=== PATIENT | female | born 2000 | race Two or more races ===

== ENCOUNTER 2024-07-03 22:17 | Emergency (ER) | payer OTHER, SELFPAY ==
[2024-07-03 22:20] VITALS: BP 146/112
[2024-07-04] VITALS: BP 140/88
--- NOTE | 2024-07-04 02:02 | ED.GENMED ---
History of Present Illness
General
Chief Complaint: DVT/Possible Blood Clot
Source: patient
Exam Limitations: none
Time Seen by Provider: 07/04/24 01:18
Nursing documentation reviewed up to this point in time: agreed with
History of Present Illness
History of Present Illness:
23-year-old female with no past medical history who presents emergency department today with concerns of left lower extremity pain and redness. Patient reports that this started the evening prior when she noticed some calf pain. Patient does take
control pills. Patient reports that the pain is worse with walking. Patient reports that today, she started to notice redness on her past and on her thigh. Patient Nu[place] any fevers or chills. She denies any nausea or vomiting. She denies
any trauma to the area or falls. She is able to ambulate without any difficulties.
Review of Systems
Review of Systems
All Other Systems: ROS reviewed and negative except as documented in HPI and ROS
Phy Exam
Physical Exam
Physical Exam:
General: Patient is well appearing and in no acute distress; non-toxic
Skin: Small warm and erythematous patch noted, 1 on the left medial thigh and 1 on the left medial lower leg
Head: Normocephalic, atraumatic
Eyes: Sclera non-icteric. EOMs intact.
Cardiac: Regular rate and rhythm, no murmurs
Peripheral Vascular: No lower extremity swelling or edema, 2+ DP pulse on the left
Pulm: Normal respiratory effort, no wheezes, rales, or rhonchi
Musculoskeletal: No bony tenderness palpation of the left lower extremity
Neuro: CN II-XII intact, no focal neurologic deficits.
Psychiatric: Appropriate mood and affect.
Course
Orders/Labs/Results
Orders:
Orders
07/04/24 00:00
US Periph Venous LOWER Ext LT Urgent
Reason For Exam: pain
Vital Signs
Initial and Last Documented VS:
Initial Vital Signs
Temp Pulse Resp BP Pulse Ox
98.0 F 100 16 146/112 97
07/03/24 22:20 07/03/24 22:20 07/03/24 22:20 07/03/24 22:20 07/03/24 22:20
Last Documented Vital Signs
Temp Pulse Resp BP Pulse Ox
98.0 F 84 18 136/86 98
07/03/24 22:20 07/04/24 02:42 07/04/24 02:42 07/04/24 02:42 07/04/24 02:42
MDM/Problems Addressed
Differential Diagnosis Includes:
DVT, cellulitis, dependent edema, contact dermatitis
MDM/Problems Addressed:
23-year-old female presents emergency department today with concerns of left-sided leg redness and pain. Pain started first yesterday and then she started to get redness. She did not injure the area she did not have any trauma to the area. She is
able to ambulate without any difficulties. On physical exam she is well-appearing no acute distress she is afebrile she does have some redness noted to the left lower leg it is hot to the touch. This is concerning for cellulitis however could be
contact dermatitis. Will cover with Keflex. DVT study negative. Patient stable for discharge.
Chronic conditions affecting care:
n/a
*Critical Care Note
Total Time (30-74mins, 75-104mins- exclusive of procedures): Not Applicable
ED Attending Note
-
Portions of this chart may have been created with voice recognition software.� Occasional wrong word or��sound alike� substitutions may have occurred due to the inherent limitations of voice recognition software.
Discharge Plan
Departure
Patient Disposition: Home (Routine Discharge)
Date of Disposition: 07/04/24
Time of Disposition: 02:04
Patient with high blood pressure during this ER visit?: Yes
Condition: Good
Discharge Problem:
Cellulitis
Instructions: Cellulitis (Skin Infection), Adult (DC), BLOOD PRESSURE
Prescriptions:
New
cephalexin 500 mg capsule
500 mg PO QID 7 Days Qty: 28 0RF
Referrals:
NONE,* [Family Provider] -
Activity Restrictions/Additional Instructions:
Keflex has been sent to your pharmacy. Starting tomorrow, you can start taking 1 tablet 4 times daily for 7 days.
Your ultrasound study was negative for DVT.
PLEASE RETURN EMERGENCY DEPARTMENT SHOULD YOU DEVELOP ACUTE WORSENING OR SYMPTOMS, LYMPHADENOPATHY, SPREADING OF THE REDNESS, FEVERS OR CHILLS, NAUSEA OR VOMITING, ANY OTHER SIGNS OR SYMPTOMS RECENTLY.
Interventions
Interventions:
*Risk Screen - Suicide Last Done: 07/03/24 22:20
*General Assessment Last Done: 07/03/24 22:20
*Neglect/Abuse Screening Last Done: 07/03/24 22:20
*ED- Fall Risk Assessment Last Done: 07/03/24 22:20
*ED COVID-19 Vaccine History Last Done: 07/03/24 22:20
*Nursing Disposition Last Done: 07/04/24 02:42
ED- Cardiac Assessment Last Done: 07/04/24 01:25
ED-Musculoskeletal Assessment Last Done: 07/04/24 01:25
ED- Pulmonary Assessment Last Done: 07/04/24 01:25
ED-Skin Assessment Last Done: 07/04/24 01:25
Discharge Date and Time
Discharge Date/Time: 07/04/24 02:44
Print Language: CZECH
[2024-07-04 02:42] VITALS: BP 136/86
== END 2024-07-04 02:44 | disposition home or self-care (01) ==
LOC: EMR 22:17
PROVIDERS: EMERGENCY PHYSICIAN Student in an Organized Health Care Education/Training Program
DX: L03.116 Cellulitis of left lower limb (principal)
CPT/HCPCS: 99284; 93971

== ENCOUNTER 2024-07-06 03:25 | Observation (INO) | payer OTHER, SELFPAY ==
[2024-07-05 22:48] VITALS: BP 131/85
[2024-07-06] VITALS (8 sets, daily range): BP systolic 114–139; BP diastolic 64–87; BMI 43.8; BMI 42.2
[2024-07-06] MEDS: ANCEF 10 IV ×3 (01:32→17:48)
[2024-07-06 01:43] LABS: % Basophils 0.3 % (0-2); % Immature Granulocytes 0.4 % (0-0.5); % Lymphocytes 41.4 % (20.5-51.1); % Monocytes 5.3 % (1.7-9.3); % Neutrophils 52.6 % (42.2-75.2); Absolute Lymphocytes 3.1 10^3/uL (1.2-3.4); Absolute Monocytes 0.4 10^3/uL (0.1-0.6); Hematocrit 36.4 % (37.0-47.0); Hemoglobin 11.4 g/dL (12.0-16.0); Mean Corp Hgb Conc. 31.3 g/dL (33.0-37.0); Mean Corpuscular Hgb 26.1 pg (27.0-31.0); Mean Corpuscular Volume 83.3 fL (81.0-99.0); Mean Platelet Volume 9.8 fL (7.4-10.4); Nucleated Red Blood Cells % 0 %; Platelet Count 319 10^3/uL (130-400); Red Blood Cell Count 4.37 10^6/uL (4.20-5.40); White Blood Cell Count 7.6 10^3/uL (4.8-10.8)
[2024-07-06 01:54] LABS: HCG, Serum Qualitative Screen Negative
[2024-07-06 01:59] LABS: ALT (SGPT) < 10 U/L (0-35); AST (SGOT) 14 U/L (14-36); Albumin 3.6 g/dl (3.5-5.0); Alkaline Phosphatase 61 U/L (38-126); Blood Urea Nitrogen 11 mg/dl (7-17); Calcium 9.4 mg/dl (8.4-10.2); Carbon Dioxide 26 mmol/L (22-30); Chloride 107 mmol/L (98-107); Estimated Creatinine Clearance > 125 ml/min; Glucose 116 mg/dl (70-99); Potassium 3.9 mmol/L (3.5-5.1); Sodium 141 mmol/L (135-145); Total Bilirubin 0.3 mg/dl (0.2-1.3); Total Protein 6.7 g/dl (6.3-8.2); eGFR > 60.00
--- NOTE | 2024-07-06 02:50 | ED.GENMED ---
History of Present Illness
General
Chief Complaint: Skin Problem
Source: patient, spouse and family
Exam Limitations: none
Time Seen by Provider: 07/06/24 00:08
Nursing documentation reviewed up to this point in time: agreed with
History of Present Illness
History of Present Illness:
23-year-old female past medical history of anxiety depression presenting to the emergency department today with concerns of worsening swelling redness discomfort to the left leg worsening over the past 2 days despite taking Keflex was diagnosed with
cellulitis 2 days ago here in the ER. Denies any fevers. Also had an ultrasound of the time that did not show any evidence of blood clot.
Review of Systems
Review of Systems
Allergies reviewed?: Yes
All Other Systems: ROS reviewed and negative except as documented in HPI and ROS
Phy Exam
Physical Exam
Physical Exam:
GENERAL: Alert , in no apparent distress
EYE: pupils equal and reactive
NECK: Supple, no significant adenopathy.
ENT: o/p clr, mmm.
CARDIAC: Regular rate and rhythm .
LUNGS: Clear breath sounds bilaterally, no acute respiratory distress, no wheezes/rales/rhonchi
ABDOMEN: Soft, without focal tenderness, no r/g, no cvat
NEUROLOGICAL: Alert and oriented, no focal neuro deficits
SKIN: Redness and swelling tenderness palpation the area overlying the medial left ankle but able to move at the ankle without discomfort, red swelling to the proximal medial left bolanos as well as to the medial thigh. No fluctuance or induration
warm and dry, skin intact.
MUSCULOSKELETAL: No edema, well perfused.
PSYCH: Normal and appropriate interaction.
Course
Orders/Labs/Results
Orders:
Orders
07/06/24 01:01
Urinalysis Reflex To Culture Urgent
Date Specimen was Collected: 07/06/24
Time Specimen was Collected: 01:21
CeFAZolin 2 GRAM [Ancef] 2 grams in 10 ml IV NOW
Test Result ONCE
07/06/24 01:32
Beta Hcg Serum Qualitative Screen [HCG, Serum Qualitative Screen] Urgent
CBC/With Diff [Complete Blood Count/With Diff] Urgent
CMP [Comprehensive Metabolic Panel] Urgent
Abnormal Lab Results
07/06/24
01:32
Hgb 11.4 L g/dL
(12.0-16.0)
Hct 36.4 L %
(37.0-47.0)
MCH 26.1 L pg
(27.0-31.0)
MCHC 31.3 L g/dL
(33.0-37.0)
Glucose 116 H mg/dl
(70-99)
07/06/24 01:32
07/06/24 01:32
Vital Signs
Initial and Last Documented VS:
Initial Vital Signs
Pulse Resp BP Pulse Ox
82 16 131/85 97
07/05/24 22:48 07/05/24 22:48 07/05/24 22:48 07/05/24 22:48
Last Documented Vital Signs
Pulse Resp BP Pulse Ox
82 18 136/66 97
07/05/24 22:48 07/06/24 02:03 07/06/24 02:00 07/06/24 02:03
MDM/Problems Addressed
MDM/Problems Addressed:
23-year-old female presenting to the emergency department today with concerns of swelling redness discomfort worsening to the left leg. Has been on Keflex for 2 days for presumed cellulitis. There is tenderness palpation and redness and warmth
overlying the medial left ankle proximal bolanos and into the thigh. Does not seem to be consistent with allergic reaction due to the tenderness to palpation no fluctuance or induration not consistent with abscess. Concern for possible cellulitis
considering this started on IV antibiotics for monitoring overnight.
*Critical Care Note
Total Time (30-74mins, 75-104mins- exclusive of procedures): Not Applicable
ED Attending Note
-
Portions of this chart may have been created with voice recognition software.� Occasional wrong word or��sound alike� substitutions may have occurred due to the inherent limitations of voice recognition software.
Discharge Plan
Departure
Patient Disposition: Admit
Date of Disposition: 07/06/24
Time of Disposition: 02:53
Admit to: Med/Surg
Admit to doctor: Abdon
Presentation/result/management discussed w/ accepting MD/DO: Hospitalist
Patient with high blood pressure during this ER visit?: No
Condition: Good
Covid-19: Not Applicable
Discharge Problem:
Cellulitis
Prescriptions:
No Action
cephalexin 500 mg capsule
500 mg PO QID 7 Days Qty: 28 0RF
Referrals:
NONE,* [Family Provider] -
Interventions
Interventions:
*Risk Screen - Suicide Last Done: 07/05/24 22:48
*General Assessment Last Done: 07/05/24 22:48
*Neglect/Abuse Screening Last Done: 07/06/24 01:16
*ED- Fall Risk Assessment Last Done: 07/05/24 22:48
*ED COVID-19 Vaccine History Last Done: 07/05/24 22:48
ED-Skin Assessment Last Done: 07/06/24 01:16
Discharge Date and Time
Print Language: IRAQI
--- NOTE | 2024-07-06 03:21 | HPS.HSE ---
Family Physician
-
Family Physician: * NONE
Chief Complaint
-
Lower extremity redness and swelling with pain
History of Present Illness
This is a 23-year-old with no known signal past medical history presenting to the emergency department for persistent lower extremity swelling redness and pain that has worsened despite initiation of oral antibiotics 2 days ago.
Patient initially presented to the emergency department after 1 day of swelling and redness that began in the posterior left calf. At the time she was noted to have small amount of erythema or in the posterior right thigh as well. She also had
some ankle redness. She was initiated on Keflex. Patient reports compliance with the Keflex for the last 2 days. Despite this the swelling around the calf had improved but around the thigh she has had increasing erythema tenderness and edema that
seems to be tracking up thigh. She also continued to have some redness and swelling of the medial side of the left ankle. She denies any prior antibiotic use. She denies any recent hospitalization. She has no history of immunocompromise. She
has no recent travels or sick contact.
She is afebrile, blood pressure was 136/66 with a pulse of 82 and she satting at 7% on room air. CBC was unremarkable stop electrolytes BUN/creatinine were all normal.
Medical History
Past Medical History
Past Medical History: Reports None
Past Surgical History: Reports None
Social History
Tobacco: Non-smoker
Alcohol: Occasional
Drug: None
Personal: Partner
Living: With Family
Family History
Family History: Cancer (Grandmother with pancreatic cancer) and Diabetes
Allergies / Home Medications
Allergies reflects when Allergies were last updated in [facility].
Home Medications with original date entered in [facility]
Allergy/Medication List:
Allergies
Allergy/AdvReac Type Severity Reaction Status Date / Time
No Known Allergies Allergy Verified 07/05/24 22:51
Home Medications
cephalexin 500 mg capsule 500 mg PO QID 7 days #28 caps 07/04/24
Review of Systems
-
History Source: Patient
Constitutional: Reports No Symptoms
EENT: Reports No Symptoms
Respiratory: Reports No Symptoms
Cardiac: Reports No Symptoms
Abdomen/GI: Reports No Symptoms
: Reports No Symptoms
Musculoskeletal: Reports No Symptoms
Skin: Reports Rash
Neurological: Reports No Symptoms
Endocrine: Reports No Symptoms
Hematologic/Lymphatic: Reports No Symptoms
Psych: Reports No Symptoms
Physical Exam
Vital Signs
Vital Signs
Pulse Resp BP Pulse Ox
82 18 139/66 95
07/05/24 22:48 07/06/24 02:03 07/06/24 03:00 07/06/24 03:00
Physical Exam
General: Well Developed, Well Nourished, No Apparent Distress and Comfortable
HEENT: NormoCephalic, Anicteric, Moist mucous membranes and Atraumatic
Respiratory: Clear
Cardiac: S1/S2 and Regular Rhythm
Breast: Deferred by me
GI: Soft, Non Tender, Non Distended and Normal Bowel Sounds
Rectal: Deferred by Provider
Genito-urinary: Deferred by me
Musculoskeletal: No Clubbing, No Cyanosis and No Edema
Skin: Warm and Lesions (erythematous tender patches spreading along the posterior thigh suggestive of lymphangitic spread. Tender to palpation. Demarcated with pen.)
Neuro: AO x 3 and Nonfocal/grossly intact
Hematologic/Lymphatic: No Lymphadenopathy
Psych: Calm
Laboratory Results
-
07/06/24 01:32
07/06/24 01:32
Laboratory Results
Total Bilirubin 0.3 mg/dl (0.2-1.3) 07/06/24 01:32
AST 14 U/L (14-36) 07/06/24 01:32
ALT < 10 U/L (0-35) 07/06/24 01:32
Alkaline Phosphatase 61 U/L (38-126) 07/06/24 01:32
Data Reviewed
-
Lab Data: Labs Reviewed by me
Old Records: Reviewed
Impression/Plan
-
IMPRESSION:
23 y.o female with cellulitis and lymphangitic spread. No known risk factors. Trial of 48 hours of oral cephalexin without improvement. She is afebrile and shows no systemic signs. Otherwise healthy female without known metabolic disease.
PLAN:
Cellulitis - Failure of outpatient abx? Lymphangitic spread.
- admit to med/surg observation
- check mrsa swab
- given lack of risk factors, will continue with cefazolin 2g q 8h for now, monitor spread and signs of systemic illness, broaden if mrsa swab positive or patient continues to have spread on IV abx.
-pain control
DVT PPx - lovenox sq
Code status - Full Code
[2024-07-06 07:45] LABS: Urine Albumin 1+ (Neg - Trace); Urine Bilirubin Negative (Negative); Urine Character Clear (Clear); Urine Color Yellow; Urine Glucose Negative (Negative); Urine Ketone Negative (Negative); Urine Leukocyte Negative (Negative); Urine Nitrite Negative (Negative); Urine Occult Blood 4+ (Negative); Urine Specific Gravity 1.025 (<1.030); Urine Urobilinogen Negative (Neg - 1+)
[2024-07-06 08:32] LABS: Urine Squamous Cell >30 /LPF (Few)
[2024-07-06 08:36] LABS: Urine Bacteria Few (Negative); Urine White Cell 0-2 /HPF (0-5)
--- NOTE | 2024-07-06 11:34 | CON.ID ---
Consultation
-
Date/Time Consultation Requested: 07/06/2024 0933
Date/Time Consultation Performed: 07/06/2024 1110
Requesting Provider: Dr. Cervantes
Performing Provider: Dr. Head
Reason for Consultation: Left lower extremity cellulitis
Chief Complaint / Past History
History of Present Illness
Latrice Graves is a 23-year-old female being evaluated at the request of Dr. Cervantes in regards to left lower extremity cellulitis. History is obtained from chart review, along with patient interview.
The patient has a significant past medical history of obesity (BMI = 42), and reports she was in her usual state of health until approximately 07/02 when she noted some muscle pain in the left leg, and felt like she pulled a muscle. She also had
noted some erythema developing on her medial calf area. She presented to the emergency room and was evaluated and felt to have left lower extremity cellulitis. A duplex ultrasound was performed which was negative, and ultimately she was discharged
on a course of Keflex 500 mg 4 times daily.
She presents back today after she developed increasing pain. She admits that yesterday she noted increased discomfort in the medial left calf area, and also noted some increasing lymphangitic streaking along her medial thigh with noted tenderness.
She admits to some groin discomfort, but denies any lymphadenopathy there. She denies any fevers or chills.
She denies any prior history of lower extremity cellulitis. She denies any history of recent travel. She does have 2 cats and 1 dog at home.
Past History
Additional Past Medical History:
Obesity
Anxiety/depression
Iron deficiency anemia
Additional Past Surgical History:
Roby teeth
Allergy History:
No Known Allergies Allergy (Verified 07/05/24 22:51)
Medications Reviewed: Yes
Current Antibiotics:
Cefazolin 2 gm IV q8h
Social History
Tobacco: Non-Smoker
Alcohol: Occasional
Drug: None
Personal: Partner
Employment: Employed
Family History
Family History: Not Pertinent
Review of Systems
Vital Signs
Temp Pulse Resp BP Pulse Ox
98.4 F 96 21 116/74 98
07/06/24 10:27 07/06/24 10:27 07/06/24 10:27 07/06/24 10:27 07/06/24 11:24
Physical Exam
Physical Exam
Constitutional: No Acute Distress, Comfortable and Non-toxic
Eyes: No Conjunctival Hemorrhage and Sclera Anicteric
Oral: No Thrush and No Ulcers
Cardiovascular: Regular Rate and S1/S2; Negative S3/S4
Pulmonary: Clear; Negative Wheezes, Rales or Rhonchi
Gastrointestinal: Soft, Non Tender, Non Distended and Normal Bowel Sounds
Extremities: Edema (LLE) and Erythema (LLE; medial calf and thigh area. Positive tenderness)
Neurological: Awake and Alert
Psychological: Calm
Lab / Diagnostic Study Results
07/06/24 01:32
07/06/24 01:32
Abs Immat Gran (auto) 0.0 10^3/uL (0-0.05) 07/06/24 01:32
Absolute Neuts (auto) 4.0 10^3/uL (1.4-6.5) 07/06/24 01:32
Absolute Lymphs (auto) 3.1 10^3/uL (1.2-3.4) 07/06/24 01:32
Absolute Monos (auto) 0.4 10^3/uL (0.1-0.6) 07/06/24 01:32
Absolute Basos (auto) 0.0 10^3/uL (0-0.2) 07/06/24 01:32
Immature Gran % 0.4 % (0-0.5) 07/06/24 01:32
Neutrophils % 52.6 % (42.2-75.2) 07/06/24 01:32
Lymphocytes % 41.4 % (20.5-51.1) 07/06/24 01:32
Monocytes % 5.3 % (1.7-9.3) 07/06/24 01:32
Eosinophils % 0.0 % (0-6) 07/06/24 01:32
Basophils % 0.3 % (0-2) 07/06/24 01:32
Ur Squamous Epith Cells >30 /LPF (Few) 07/06/24 07:18
Microbiology Results
Micro:
07/06/24 04:28 MRSA Screen - Pending
Nose
Imaging:
07/04/2024 Duplex ultrasound left lower extremity: No subcutaneous varicosities. No evidence of left lower extremity DVT.
Assessment / Plan
LLE cellulitis
- Given presentation, suspect streptococcal
Hx obesity
Hx anxiety/depression
Recommendations:
Continue with IV cefazolin for today.
LE elevations.
Monitor WBC / temp curve.
Would reassess leg in a.m., and if improved, can likely transition to oral Keflex, but would increase to 750 mg 4 times daily (given current BMI) and continue therapy through 07/12/24
--- NOTE | 2024-07-06 15:16 | CM ---
Met with patient at the bedside
Pharmacy verified: [facility] @ [address], [place]
Appointment scheduled on Tuesday with new Primary Care Provider; patient does not recall Physician's name
Outpatient Observation Status Notice explained; form signed @ 1512
Patient lives with her girlfriend/girlfriend's family; multilevel home; 1 step to enter; 12-13 steps between floors; railing on stairs; patient shares bedroom and bath with her friend; bath has tub w/shower
PLOF: independent with ambulation, stairs, and ADLs; drives; has a car; works timekeeper; No DME
Transport: friend or friend's family will provide transport home
Plan: discharge to home when stable; no needs anticipated
[2024-07-06] MEDS: LOVENOX 40 MG SC (17:48)
[2024-07-06] MEDS: TORADOL 10 MG IV (19:40)
[2024-07-06] MEDS: TYLENOL 650 MG PO (21:48)
[2024-07-07] MEDS: ANCEF 10 IV ×2 (02:04→09:59)
[2024-07-07] MEDS: TORADOL 10 MG IV (02:05)
[2024-07-07 07:37] VITALS: BP 112/71
--- NOTE | 2024-07-07 11:20 | W.PN.ID1 ---
Date of Service
Date of Service: July 07, 2024
Today's Communication
transition to oral Keflex 1000 mg 4 times daily (given current BMI) and continue therapy through 07/12/24
stable for dc from ID perspective
Assessment / Plan
Nonpurulent LLE cellulitis
- Given presentation, suspect streptococcal
Hx class III obesity
Hx anxiety/depression
Recommendations:
LE elevations as tolerated
MRSA screen negative as expected
Monitor WBC / temp curve.
transition to oral Keflex 1000 mg 4 times daily (given current BMI) and continue therapy through 07/12/24
stable for dc from ID perspective
Chief Complaint
-: Cellulitis
Subjective / Review of Systems
afebrile
bp stable
tolerating current therapies
Vital Signs / Physical Exam
Vital Signs
Vital Signs
Temp Pulse Resp BP Pulse Ox
98.2 F 84 17 112/71 97
07/07/24 07:37 07/07/24 07:37 07/07/24 07:37 07/07/24 07:37 07/07/24 07:37
Physical Exam
Constitutional: No Acute Distress
Cardiovascular: Regular Rate and S1/S2; Negative Murmur or Rub
Pulmonary: Clear and Symmetric; Negative Wheezes or Rales
Gastrointestinal: Soft, Non Tender, Non Distended and Normal Bowel Sounds
Skin: Warm, Dry and Rash (minimal persistent erythema, minimally tender); Negative Jaundice
Objective Data
Lab Data
Lab Results
07/06/24 01:32
07/06/24 01:32
Estimated Creat Clear > 125 ml/min 07/06/24 01:32
Total Bilirubin 0.3 mg/dl (0.2-1.3) 07/06/24 01:32
AST 14 U/L (14-36) 07/06/24 01:32
ALT < 10 U/L (0-35) 07/06/24 01:32
Alkaline Phosphatase 61 U/L (38-126) 07/06/24 01:32
Most recent labs reviewed.
Micro Results:
07/06/24 04:28 MRSA Screen - Final
Nose No Methicillin Resistant Staphylococcus aureus isolated.
Imaging:
07/04/2024 Duplex ultrasound left lower extremity: No subcutaneous varicosities. No evidence of left lower extremity DVT.
[2024-07-07] MEDS: KEFLEX 1000 MG PO (12:20)
--- NOTE | 2024-07-07 13:18 | W.DCSUMMARY ---
Discharge Summary
Discharge Data
Date of Admission: 07/06/24
Date of Discharge: 07/07/24
-
Pending Results: No
Hospital Course
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
Presenting with left lower extremity cellulitis that was worsening despite receiving antibiotics. Was on outpatient Keflex 500 mg 4 times daily approximately 48 hours without improvement. Associated pain while ambulating. Therefore presented to
the hospital was provided with IV antibiotics with improvement of redness swelling and pain. Was evaluated by infectious disease provider recommendation of Keflex 750 mg 4 times daily as it has been suspected that the initial dosing was likely
underdosed rather than failure.
DVT Ultrasound
IMPRESSION:
No evidence of left lower extremity deep venous thrombosis from the common femoral through the upper calf veins.
Was seen and examined the day of discharge 07/08/2019. Eating a cheese steak and fries. Parents at bedside.
12 point complete ROS negative apart from what stated as above
NAD
Scleral Anicteric
MMM
No JVD
CTABL
RRR, S1/S2
Soft, NT, ND, BS+
Warm, Dry
AAOx3
Calm
More than 30 minutes spent in discharge including
Final examination of the patient
Summarizing hospital stay
Instructions for continuing care to all relevant caregivers
Preparation of discharge records, prescriptions, and referral forms
Total time spent (in minutes): 33mins
Discharge Plan
-
Patient Disposition: Home (Routine Discharge)
Discharge Diagnosis/Procedures: LLE cellulitis
Activity Restrictions/Additional Instructions:
Presenting with left lower extremity cellulitis that was worsening despite receiving antibiotics. Was on outpatient Keflex 500 mg 4 times daily approximately 48 hours without improvement. Associated pain while ambulating. Therefore presented to
the hospital was provided with IV antibiotics with improvement of redness swelling and pain. Was evaluated by infectious disease provider recommendation of Keflex 750 mg 4 times daily as it has been suspected that the initial dosing was likely
underdosed rather than failure.
DVT Ultrasound
IMPRESSION:
No evidence of left lower extremity deep venous thrombosis from the common femoral through the upper calf veins.
Referrals:
NONE,* [Family Provider] -
Prescriptions:
New
cephalexin 750 mg capsule
750 mg PO QID 10 Days Qty: 40 0RF
Discontinued
cephalexin 500 mg capsule
500 mg PO QID 7 Days Qty: 28 0RF
Discharge Orders:
Discharge Patient (As Directed); Ordered 07/07/24
Ordered By: Moisés Cervantes
Discharge Date and Time
Print Language: KYRGYZ
[2024-07-07 13:26] VITALS: BP 130/76
--- NOTE | 2024-07-07 13:49 | CM ---
Chart reviewed and home today
Plan; Home no needs.
== END 2024-07-07 13:59 | disposition home or self-care (01) ==
LOC: 1 ACUTE 03:25
PROVIDERS: Physician Assistant; ADMITTING PHYSICIAN Internal Medicine; ATTENDING PHYSICIAN Hospitalist; EMERGENCY PHYSICIAN Student in an Organized Health Care Education/Training Program; OTHER PHYSICIAN Internal Medicine Infectious Disease
DX: L03.116 Cellulitis of left lower limb (principal); E66.9 Obesity, unspecified; Z68.41 Body mass index [BMI] 40.0-44.9, adult
CPT/HCPCS: 80053; 81003; 81015; 84703; 85025; 87070; 96374; 99285; G0378